=== PATIENT | male | born 1970 | race Caucasian/White ===

== ENCOUNTER → 2020-12-18 13:49 | Outpatient (BNVA) | payer OTHER, SELFPAY | PROVIDERS: PCP Family Medicine; Visit Provider Physician Assistant | DX: S66.812A Strain of other specified muscles, fascia and tendons at wrist and hand level, left hand, initial encounter (principal) | CPT/HCPCS: 99202 ==

== ENCOUNTER 2020-12-19 10:47 | Day surgery (SDC) | payer OTHER, SELFPAY ==
[2020-12-19] VITALS (8 sets, daily range): BP systolic 107–135; BP diastolic 54–87; PULSE 45–56; RESP 16–18; TEMP 36.1–37.2; O2SAT 98–100; BMI 25.0
--- NOTE | 2020-12-19 13:02 | MHC.SHP ---
Pre-Procedural Eval Section A Date of Service: 12/19/20 The patient is an INPATIENT: No Changes since office visit: No Cold of Flu in the past 2 weeks, No New Medical Problems, No Changes in Medication and No Patient answered all questions The History & Physical has been completed within 30 days and I have reviewed it.: Yes Section B Chief Complaint: tendon laceration Allergies: Allergies Allergy/AdvReac Type Severity Reaction Status Date / Time No Known Allergies Allergy Verified 12/19/20 11:05 Plan I have reviewed the history and physical and performed a pertinent physical examination on my patient. No changes have occurred unless specified.
--- NOTE | 2020-12-19 13:03 | P.OP_ITS ---
Operative Note Operative Note Date of Service: 12/19/20 Narrative: Operative Note Narrative: Preop diagnosis: 1. Left thumb extensor pollicis longus tendon laceration over the proximal phalanx Postop diagnosis: Same Procedure: 1. Left thumb extensor pollicis longus tendon repair Surgeon: Sandi Hudson MD Anesthesia: Mac plus regional block Findings: EPL tendon laceration over the proximal phalanx Implants: none Tourniquet time: 19 minutes EBL: 5.0 ml Specimen: None Drains: None Complications: None Disposition: Brought to the recovery room in stable condition Plan: Follow-up in 10-14 days for wound check, suture removal and placement in a sh ort-arm thumb spica cast to the tip of the thumb until 6 weeks postop Indications: The patient is a 50 year old man with left dorsal thumb laceration with laceration of the EPL tendon over the dorsal aspect of the proximal phalanx . The risks and benefits of operative treatment, including but not limited to risk of damage to blood vessels, nerves, tendons, infection, recurrence, persistent pain or numbness, incomplete resolution of preoperative symptoms, or need for further surgery were discussed with the patient and they wished to proceed with surgery. Procedure: Once consent was obtained patient was brought back to the operating suite and placed in the operating table in a supine position. . Perioperative antibiotics and anesthesia was administered by the anesthesia team. A tourniquet was applied to the proximal aspect of the left upper extremity and the limb was prepped and draped in a standard surgical fashion. The limb was elevated exsanguinated with Esmarch bandage and the tourniquet inflated to 250 mm of mercury for a total tourniquet time of 19 minutes. The sutures were removed from the chevron shaped laceration over the dorsal aspect of the left thumb proximal phalanx. The wound edges were debrided using some tenotomy scissors and a 15. Blade. The distal and of the EPL tendon was visualized within the wound. It is proximal to the IP joint. I then extended the radial aspect of the laceration proximally a distance of perhaps 3 cm using a 15. Blade. I then dissected down to the level of the extensor mechanism using tenotomy scissors. The EPL tendon and the EPB tendon could be seen entering the extensor expansion at about the MCP joint. Again the wound was debrided of us few small pieces of metallic debris and the wound was copiously irrigated with normal saline. It appears the laceration went through the extensor expansion containing the EPL any APB tendons at about the mid level of the proximal phalanx. It also extended down through the periosteum to the proximal phalanx itself. The proximal aspect of the extensor expansion and EPL tendon were then mobilized distally. I then performed a 4 core suture repair of the tendon using some 3-0 Ethibond. This was then reinforced with a running 5 0 Prolene suture. At this point the tourniquet was deflated and hemostasis obtained with a brief period of local pressure and bipolar electrocautery. The wound was copiously irrigated with normal saline. The skin edges were reapproximated with 5-0 nylon suture. The wound was infiltrated with some 0.5% plain Marcaine for postop pain control and a sterile dressing was applied. The patient was then placed in a short-arm thumb spica splint holding the thumb in extension. The patient appears to have tolerated the procedure well and with no complications. All digits were well vascularized conclusion of the case.
[2020-12-19] MEDS: Lactated Ringers 1,000 ML 50 ML IVCONT (13:13)
--- NOTE | 2020-12-19 13:58 | HO.ANESPROP2 ---
HPI - Anesthesia Eval Consult details Narrative: 50-year-old healthy male here for extensor tendon repair of his left thumb PMFSH Active Problems Active Problems: All Active Problems (Updated 12/19/20 @ 11:05 by Cheyenne Wyman RN) Rupture of extensor tendon of left hand (Acute) Past Medical History Medical History HTN (hypertension) Family History Family history of problems with anesthesia: No Surgical History History of Problems with Anesthesia: No Social History Social History (Updated 12/18/20 @ 13:57 by NAVID Prado) Alcohol intake: never Patient Tobacco Use Status: Never used Tobacco Use of substances other than those prescribed or required for medical reasons: No Are you DNR?: No Advance Directives: No Advance Directives Information Provided: Yes Current occupational status: employed 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 Meds Allergies Allergy/AdvReac Type Severity Reaction Status Date / Time No Known Allergies Allergy Verified 12/19/20 11:05 Active Medications: Current Medications Generic Name Dose Route Start Last Admin Trade Name Freq PRN Reason Stop Dose Admin Acetaminophen 650 mg 12/19/20 12:52 Acetaminophen 325 Mg Tablet PO ONCE PRN Pain, Mild (Pain Scale 1-3) Hydromorphone HCl 0.25 mg 12/19/20 12:52 Hydromorphone Hcl 0.5 Mg/0.5 Ml Syringe IVPUSH Q5M PRN Pain, Severe (Pain Scale 7-10) Protocol Lactated Ringer's 1,000 mls @ 50 mls/hr 12/19/20 13:00 12/19/20 13:13 Lr IVCONT 50 mls/hr .Q20H MENDEZ Administration Ketorolac Tromethamine 15 mg 12/19/20 12:52 Ketorolac Tromethamine 15 Mg/Ml Vial IVPUSH ONCE PRN Pain, Moderate (Pain Scale 4-6 Oxycodone HCl 5 mg 12/19/20 12:52 Oxycodone Hcl Immed Release 5 Mg Tablet PO ONCE PRN Pain, Severe (Pain Scale 7-10) Home Medications Medication Instructions Recorded Confirmed Last Taken Type atenolol 50 mg tablet 1 tab PO DAILY 12/19/20 12/19/20 Unknown History bupropion HCl 300 mg 24 hr tablet, 1 tab PO DAILY 12/19/20 12/19/20 Unknown History extended release Exam Exam Date and Time: December 19, 2020 1358 Height,Weight and Vital Signs: Height 6 ft 2 in Weight 195 lb Last Vital Signs Temp 98.9 F 12/19/20 11:35 Pulse 56 12/19/20 11:35 Resp 18 12/19/20 11:35 BP 107/75 12/19/20 11:35 Pulse Ox 98 12/19/20 11:35 Airway Mallampati Class: I TM Dist: >3cm Neck ROM: Full Loose/Missing/Broken Teeth: No Heart: RRR Assessment and Plan Assessment Anesthesia Assessment: Anesthesia Plan Discussed and Chart Reviewed Final Anesthetic Review Family History of Problems with Anesthesia: No History of Problems with Anesthesia: No NPO: Yes ASA Class: I Final Preanesthetic Review: No Changes in Pt Med Stat, Meds/Allgs Chart Reviewed, Consent Obtained/Reviewed and Anes Risks/Benef Reviewed Patient Risk: Low Procedure Risk: Low Anesthetic Plan Anesthetic Plan: GA Disposition: Standard PACU
== END 2020-12-19 16:11 | disposition home or self-care (01) ==
PROVIDERS: PCP Family Medicine; Visit Provider Orthopaedic Surgery
PROC: (CPT 26418; principal; 2020-12-19 12:10)
DX: S66.222A Laceration of extensor muscle, fascia and tendon of left thumb at wrist and hand level, initial encounter (principal); S61.012A Laceration without foreign body of left thumb without damage to nail, initial encounter; W27.8XXA Contact with other nonpowered hand tool, initial encounter; Y93.89 Activity, other specified; Y92.9 Unspecified place or not applicable; Y99.8 Other external cause status
CPT/HCPCS: 26418; J0690; J2250; J2405; J3010

== ENCOUNTER 2020-12-28 07:34 | Outpatient (REF) | payer OTHER, SELFPAY ==
[2020-12-28 11:34] LABS: MANUAL DIFF FLAG NO
[2020-12-28 11:41] LABS: Basophils Percent Auto 0.7 % (0-2); Eosinophils Absolute Auto 0.1 X10*3/uL (0.0-0.4); Eosinophils Percent Auto 2.2 % (0-4); Hematocrit 41.3 % (42-52); Hemoglobin 13.6 g/dl (14.0-18.0); Imm Gran Abs Auto 0.01 X10*3/uL (0.00-0.03); Imm Gran Pct Auto 0.2 % (0.0-0.4); Lymphocytes Absolute Auto 1.9 X10*3/uL (1.2-4.9); Lymphocytes Percent Auto 33.9 % (20-40); Mean Corpuscular HGB Conc 32.9 g/dl (31.0-36.0); Mean Corpuscular Volume 91.2 fL (80-98); Mean Platelet Volume 10.2 fL (9.4-12.4); Monocytes Absolute Auto 0.4 X10*3/uL (0.1-1.2); Platelet Count 243 X10*3/uL (160-400); Red Blood Count 4.53 X10*6/uL (4.60-5.80); Red Cell Distribution Width 13.1 % (11.0-16.0); White Blood Count 5.5 X10*3/uL (4.8-10.8)
[2020-12-28 12:13] LABS: Alanine Aminotransferase 17 U/L (0-40); Albumin Level 4.3 g/dL (3.5-5.0); Alkaline Phosphatase 59 U/L (39-117); Anion Gap 9 (12-20); Aspartate Amino Transferase 14 U/L (5-37); Bilirubin Total 1.3 mg/dL (0.0-1.0); Blood Urea Nitrogen 21 mg/dL (9-16); Calcium 9.1 mg/dL (8.4-10.2); Carbon Dioxide 28 mmol/L (22-29); Chloride 109 mmol/L (96-108); Estimated Glomerular Filt Rate > 60; Glucose Fasting 97 mg/dL (60-99); Potassium 4.2 mmol/L (3.3-5.1); Sodium 142 mmol/L (135-145); Total Protein 6.4 g/dL (6.5-8.0)
[2020-12-28 12:35] LABS: TSH reflex Free T4 1.07 uIU/mL (0.32-4.0)
[2020-12-31 15:57] LABS: Lamotrigine Lamictal 6.5 mcg/mL (4.0-18.0)
== END 2020-12-28 07:35 | disposition home or self-care (01) ==
LOC: HO.WFDLDS 07:34
PROVIDERS: Visit Provider Family Medicine
DX: Z00.00 Encounter for general adult medical examination without abnormal findings (principal); Z12.5 Encounter for screening for malignant neoplasm of prostate; Z80.42 Family history of malignant neoplasm of prostate
CPT/HCPCS: 36415; 80053; 80175; 84153; 84443; 85025

== ENCOUNTER → 2021-01-01 16:05 | Outpatient (BNVA) | payer OTHER, SELFPAY | PROVIDERS: Visit Provider Orthopaedic Surgery | DX: S66.822D Laceration of other specified muscles, fascia and tendons at wrist and hand level, left hand, subsequent encounter (principal) | CPT/HCPCS: 29075; 99212 ==

== ENCOUNTER → 2021-01-08 15:03 | Outpatient (BNVA) | payer OTHER, SELFPAY | PROVIDERS: Visit Provider Orthopaedic Surgery | DX: S61.412D Laceration without foreign body of left hand, subsequent encounter (principal); S66.822D Laceration of other specified muscles, fascia and tendons at wrist and hand level, left hand, subsequent encounter | CPT/HCPCS: 99212 ==

== ENCOUNTER 2021-01-24 09:48 | Outpatient (REF) | payer OTHER, SELFPAY ==
[2021-01-24 11:11] LABS: Cholesterol 200 mg/dL; HDL Cholesterol 45 mg/dL; LDL Cholesterol Calculated 122 mg/dl; Triglycerides 168 mg/dL
== END 2021-01-24 09:49 | disposition home or self-care (01) ==
LOC: HO.WFDLDS 09:48
PROVIDERS: Visit Provider Family Medicine
DX: Z00.00 Encounter for general adult medical examination without abnormal findings (principal)
CPT/HCPCS: 36415; 80061

== ENCOUNTER → 2021-01-29 10:28 | Outpatient (BNVA) | payer OTHER, SELFPAY | PROVIDERS: Visit Provider Orthopaedic Surgery | DX: S61.412D Laceration without foreign body of left hand, subsequent encounter (principal); S66.822D Laceration of other specified muscles, fascia and tendons at wrist and hand level, left hand, subsequent encounter | CPT/HCPCS: 99212 ==

== ENCOUNTER 2022-04-17 16:11 | Outpatient (REF) | payer OTHER, SELFPAY | END 2022-04-17 16:12 | disposition home or self-care (01) | LOC: HO.HOSX 16:11 | PROVIDERS: Visit Provider Orthopaedic Surgery | DX: Z13.89 Encounter for screening for other disorder (principal) ==

== ENCOUNTER 2022-05-31 08:23 | Outpatient (REF) | payer OTHER, SELFPAY ==
[2022-05-31 11:15] LABS: MANUAL DIFF FLAG NO
[2022-05-31 11:31] LABS: Basophils Absolute Auto 0.1 X10*3/uL (0.0-0.2); Basophils Percent Auto 1.1 % (0-2); Eosinophils Absolute Auto 0.2 X10*3/uL (0.0-0.4); Eosinophils Percent Auto 3.9 % (0-4); Hematocrit 43.4 % (42.0-52.0); Hemoglobin 14.4 g/dl (14.0-18.0); Imm Gran Abs Auto 0.01 X10*3/uL (0.00-0.03); Imm Gran Pct Auto 0.2 % (0.0-0.4); Lymphocytes Absolute Auto 1.9 X10*3/uL (1.2-4.9); Lymphocytes Percent Auto 33.5 % (20-40); Mean Corpuscular HGB Conc 33.2 g/dl (31.0-36.0); Mean Corpuscular Hemoglobin 29.6 pg (27.0-33.0); Mean Corpuscular Volume 89.3 fL (80.0-98.0); Mean Platelet Volume 10.3 fL (9.4-12.4); Monocytes Absolute Auto 0.4 X10*3/uL (0.1-1.2); Neutrophils Absolute Auto 3.1 x10*3/uL (2.0-8.3); Neutrophils Percent Auto 54.3 % (45-73); Platelet Count 237 X10*3/uL (160-400); Red Blood Count 4.86 X10*6/uL (4.60-5.80); Red Cell Distribution Width 12.4 % (11.0-16.0); White Blood Count 5.7 X10*3/uL (4.8-10.8)
[2022-05-31 11:35] LABS: Partial Thromboplastin Time 30.2 SEC (26.0-36.4)
[2022-05-31 12:26] LABS: Anion Gap 8 (12-20); Blood Urea Nitrogen 17 mg/dL (9-16); Calcium 8.6 mg/dL (8.4-10.2); Carbon Dioxide 27 mmol/L (22-29); Chloride 109 mmol/L (96-108); Estimated Glomerular Filt Rate > 60; Glucose Random 90 mg/dL (60-115); Sodium 140 mmol/L (135-145)
== END 2022-05-31 08:24 | disposition home or self-care (01) ==
LOC: HO.WFDLDS 08:23
PROVIDERS: Visit Provider Family Medicine
DX: Z00.00 Encounter for general adult medical examination without abnormal findings (principal); Z13.1 Encounter for screening for diabetes mellitus
CPT/HCPCS: 36415; 80048; 85025; 85730

== ENCOUNTER 2022-06-03 11:21 | Outpatient (REF) | payer OTHER, SELFPAY ==
[2022-06-03 14:22] LABS: Prothrombin Time 11.2 SEC (10.0-13.1)
== END 2022-06-03 11:22 | disposition home or self-care (01) ==
LOC: HO.WFDLDS 11:21
PROVIDERS: Visit Provider Family Medicine
DX: Z01.818 Encounter for other preprocedural examination (principal)
CPT/HCPCS: 36415; 85610